=== PATIENT | male | born 1975 | race American Indian/Alaskan Native ===

== ENCOUNTER 2021-12-21 02:15 | Emergency (ER) | payer SELFPAY ==
[2021-12-21 03:11] VITALS: BP 132/78
== END 2021-12-21 05:25 | disposition left against medical advice (07) ==
LOC: ED 02:15
DX: Z00.00 Encounter for general adult medical examination without abnormal findings (principal); Z53.21 Procedure and treatment not carried out due to patient leaving prior to being seen by health care provider; W19.XXXA Unspecified fall, initial encounter; Y93.89 Activity, other specified; Y92.89 Other specified places as the place of occurrence of the external cause; Y99.8 Other external cause status